=== PATIENT | male | born 1975 | race African-American/Black ===

== ENCOUNTER 2017-09-04 15:45 | Emergency (ER) | payer OTHER ==
[2017-09-04] MEDS: MORPHINE SULFATE 10 MG/ML VIAL. IV (16:54)
== END 2017-09-04 18:31 | disposition home or self-care (01) ==
LOC: ER 15:45
DX: S23.3XXA Sprain of ligaments of thoracic spine, initial encounter (principal); S13.4XXA Sprain of ligaments of cervical spine, initial encounter; S80.02XA Contusion of left knee, initial encounter; M54.5 Low back pain; E11.9 Type 2 diabetes mellitus without complications; I10 Essential (primary) hypertension; V43.52XA Car driver injured in collision with other type car in traffic accident, initial encounter; Y93.89 Activity, other specified; Y92.488 Other paved roadways as the place of occurrence of the external cause; Y99.8 Other external cause status
CPT/HCPCS: 72125; 72128; 72131; 73564; 96374; 99284; J2270